=== PATIENT | male | born 1965 | race Caucasian/White ===

== ENCOUNTER → 2016-12-01 | Outpatient (CLI) | payer BC ==
[~2016-12-01] MED LIST: ASCA500 PO; GARLTAB3; LISI40TA PO
[2016-12-01 12:35] LABS: BASO % 0.7 %; BASO ABS # 0.05 K/uL (0-0.2); COMPLETE YES; EOS % 7.5 %; HEMATOCRIT 41.7 % (42-52); IG% 0.3 %; LYMPH ABS # 3.08 K/uL (1.2-3.4); MEAN CELL VOLUME 93.5 fL (80-100); MEAN CORPUSCULAR HEMOGLOBIN 31.2 pg (25-34); MEAN CORPUSCULAR HGB CONC 33.3 g/dl (32-36); MEAN PLATELET VOLUME 9.3 fL (7.4-10.4); MONO % 6.8 %; NEUT % 41.7 %; PLATELET COUNT 293 K/uL (130-400); RED BLOOD COUNT 4.46 M/uL (4.7-6.1); WHITE BLOOD COUNT 7.17 K/uL (4.8-10.8)
[2016-12-01 13:07] LABS: ESTIMATED AVERAGE GLUCOSE 105 mg/dl; HA1C FLAG Normal (Normal)
[2016-12-01 13:44] LABS: ALT/SGPT 32 U/L (12-78); AST/SGOT 20 U/L (15-37); BLOOD UREA NITROGEN 17 mg/dl (7-18); BUN/CREATININE RATIO 13.8 (10-20); CALCIUM 8.6 mg/dl (8.5-10.1); CARBON DIOXIDE 23 mmol/L (21-32); CHLORIDE 106 mmol/L (98-107); GLUCOSE 94 mg/dl (70-99); POTASSIUM 4.2 mmol/L (3.5-5.1); SODIUM 139 mmol/L (136-145)
[2016-12-01 13:55] LABS: ALB/GLOB RATIO 1.3 (0.9-2); ALKALINE PHOSPHATASE 63 U/L (45-117); CHOLESTEROL 227 mg/dl (0-200); CHOLESTEROL/HDL RATIO 2.9; HDL CHOLESTEROL 77 mg/dl; LDL CHOLESTEROL CALCULATED 137 mg/dl; THYROID STIMULATING HORMONE 0.974 uIu/ml (0.300-4.500); TRIGLYCERIDES 63 mg/dl (0-150); VERY LOW DENSITY LIPOPROT CALC 13 mg/dl
== END | disposition home or self-care (01) ==
LOC: C.LABBFT 08:42
PROVIDERS: ATTEND Internal Medicine
DX: Z12.5 Encounter for screening for malignant neoplasm of prostate (principal); E78.5 Hyperlipidemia, unspecified; I10 Essential (primary) hypertension; R73.01 Impaired fasting glucose

== ENCOUNTER → 2017-01-05 | Outpatient (CLI) | payer BC ==
[2017-01-05 12:18] LABS: BASO % 0.9 %; BASO ABS # 0.06 K/uL (0-0.2); COMPLETE YES; EOS % 5.1 %; HEMATOCRIT 39.6 % (42-52); IG% 0.1 %; LYMPH % 34.2 %; LYMPH ABS # 2.34 K/uL (1.2-3.4); MEAN CELL VOLUME 93.2 fL (80-100); MEAN CORPUSCULAR HEMOGLOBIN 32.2 pg (25-34); MEAN CORPUSCULAR HGB CONC 34.6 g/dl (32-36); MEAN PLATELET VOLUME 9.3 fL (7.4-10.4); NEUT % 51.7 %; PLATELET COUNT 286 K/uL (130-400); RED BLOOD COUNT 4.25 M/uL (4.7-6.1); WHITE BLOOD COUNT 6.85 K/uL (4.8-10.8)
[2017-01-05 12:46] LABS: FERRITIN 403.9 ng/ml (8.0-388.0)
== END | disposition home or self-care (01) ==
LOC: C.LABBFT 09:06
PROVIDERS: ATTEND Internal Medicine
DX: D64.9 Anemia, unspecified (principal)

== ENCOUNTER → 2017-01-31 | Outpatient (CLI) | payer BC | END | disposition home or self-care (01) | LOC: C.LABSPEC 17:24 | PROVIDERS: ATTEND Internal Medicine | DX: D64.9 Anemia, unspecified (principal) ==

== ENCOUNTER → 2018-02-08 | Outpatient (CLI) | payer BC ==
[2018-02-08 17:34] LABS: BASO % 0.6 %; BASO ABS # 0.05 K/uL (0-0.2); EOS % 3.2 %; EOS ABS # 0.25 K/uL (0-0.5); HEMATOCRIT 43.2 % (42-52); HEMOGLOBIN 14.8 g/dL (14.0-18.0); IG# 0.01 K/uL (0.00-0.02); LYMPH % 37.8 %; LYMPH ABS # 2.97 K/uL (1.2-3.4); MEAN CELL VOLUME 93.9 fL (80-100); MEAN CORPUSCULAR HEMOGLOBIN 32.2 pg (25-34); MEAN CORPUSCULAR HGB CONC 34.3 g/dl (32-36); MEAN PLATELET VOLUME 9.3 fL (7.4-10.4); MONO % 6.1 %; MONO ABS # 0.48 K/uL (0.11-0.59); NEUT % 52.2 %; PLATELET COUNT 307 K/uL (130-400); RED CELL DISTRIBUTION WIDTH SD 45.1 fL (36.4-46.3); WHITE BLOOD COUNT 7.86 K/uL (4.8-10.8)
[2018-02-08 18:08] LABS: ALBUMIN 4.2 gm/dl (3.4-5.0); ALKALINE PHOSPHATASE 80 U/L (45-117); ALT/SGPT 37 U/L (12-78); AST/SGOT 23 U/L (15-37); BLOOD UREA NITROGEN 13 mg/dl (7-18); CALCIUM 8.9 mg/dl (8.5-10.1); CARBON DIOXIDE 24 mmol/L (21-32); CHOLESTEROL 249 mg/dl (0-200); CREATININE 1.01 mg/dl (0.60-1.40); GLUCOSE 81 mg/dl (70-99); LDL CHOLESTEROL CALCULATED 133 mg/dl; POTASSIUM 3.6 mmol/L (3.5-5.1); SODIUM 139 mmol/L (136-145); TOTAL PROTEIN 8.1 gm/dl (6.4-8.2)
[2018-02-09 05:58] LABS: HEMOGLOBIN A1C 5.3 % (4.5-5.6)
== END | disposition home or self-care (01) ==
LOC: C.LAB1850 16:25
PROVIDERS: ATTEND Internal Medicine
DX: D64.9 Anemia, unspecified (principal); E78.5 Hyperlipidemia, unspecified; R73.01 Impaired fasting glucose; Z12.5 Encounter for screening for malignant neoplasm of prostate

== ENCOUNTER 2022-07-29 23:14 | Inpatient (IN) ==
--- NOTE | 2022-07-30 00:01 | Emergency Department Note ---
Impression & Plan Alcohol intoxication, Mood disorder The case was signed out to Dr. Ramon at change of shift awaiting further evaluation by the ED psychiatric case advocate ED Provider Note NAME: FERCHO ARRIAZA AGE: 57 SEX: M ARRIVES VIA: Police Cruiser INFORMANT: Patient ED PROVIDER(S): Chiquis Sweeney DO CHIEF COMPLAINT: Alcohol intoxication; questionable suicidal statements PLAN: Disposition: The case was signed out to Dr. Ramon at change of shift Condition: Stable MEDICAL DECISION MAKING: This is a 57-year-old male patient who was brought to the emergency department on 302 after making some questionable suicidal statements. The patient was significantly intoxicated. We were awaiting sobriety patient sobered up over most of the night and was medically cleared this morning. The ED psychiatric case advocate was meeting with him and the case was signed out to Dr. Ramon for dispositioning. Triage Nursing notes reviewed and agree with them. Additional history obtained from the patient's and daughter with whom were meeting with the ED psychiatric case advocate by phone Vital Signs: reviewed and remarkable for tachycardia and mild hypertension Differential diagnosis: Mood disorder, thought disorder, alcohol intoxication Diagnostics interpreted by me: Laboratory studies: See below HPI: 57/M arrives for evaluation of 302 warrant. Patient was drinking alcohol tonight when he became frustrated with his grandchildren and left the home to go on a walk. Upon returning to the home, his daughter petitioned a 302 stating that he had made suicidal statements. State police brought him here for evaluation. The patient denies making the statements PAST MEDICAL HISTORY:Hypertension; depression PAST SURGICAL HISTORY:See Below FAMILY HISTORY:See Below SOCIAL HISTORY:Patient was laid off of his job 2 and half years ago. The patient uses chewing tobacco HOME MEDICATIONS:See list ALLERGIES:Penicillin VITALS:See Below PHYSICAL EXAMINATION: HEENT: Head - normocephalic and atraumatic. Pupils are equal, round, and reactive to light. Extraocular eye muscles are intact, and sclera are anicteric. Nose - moist nasal mucosa without discharge. Mouth - moist buccal mucosa. Oropharynx is nonerythematous and there is no tonsillar exudate or edema noted. Neck: Supple; no cervical lymphadenopathy Heart: Regular rate and rhythm. There is a normal S1 and S2 with no murmurs, clicks, or gallops appreciated. Lungs: Clear to auscultation bilaterally with no wheezes, rales, or rhonchi. Abdomen: Soft, completely nontender, nondistended, with good bowel sounds. Th ere are no palpable pulsatile masses or hepatosplenomegaly. There is no guarding, rigidity, or rebound noted. Extremities: No evidence of cyanosis, clubbing, or edema. There are easily palpable peripheral pulses. Skin: warm and dry with good turgor and no rashes. Psych: The patient admits that he is depressed but denies any suicidal or homicidal thoughts ED COURSE: Times/Reassessments: 234 patient was evaluated in room A-5 Laboratory studies were drawn. Chiquis Sweeney DO Past Med/Surg History Medical History Hypertension Right bundle branch block Surgical History S/P tonsillectomy Family History Daughter Breast cancer Denies family history of Prostate cancer Lung cancer Colorectal cancer Social History (Updated 02/05/22 @ 10:30 by SKIP Davidson) Smoking Status: Unknown if ever smoked Tobacco Type: Smokeless Tobacco (Dip or Chew) Second Hand Exposure: No; Hx Alcohol Use: Yes Alcohol type: beer Alcohol Intake Frequency Comment: 6 be ers per day Hx Substance Use: No Preferred Language: Icelandic Hearing Ability: Normal Reinstatement Clerk Required: No marital status: Current Living Situation: Spouse current occupational status: retired Feels Safe at Home: Yes Childhood Exposure to Second-Hand Smoke: No caffeine: Yes Dental Care, Regularly: No Physical Activity Frequency: Does not Exercise Seatbelt Use: always Gender Identity: Male Allergies Allergies Allergy/AdvReac Type Severity Reaction Status Date / Time Penicillins Allergy Unknown RASH Verified 02/05/22 10:18 Home Meds Previous Rx's Medication Instructions Recorded amlodipine 10 mg tablet 10 mg PO DAILY #90 tabs 02/05/22 lisinopril 40 mg tablet 40 mg PO DAILY #90 tabs 02/05/22 Results & Data (ED) Vital Signs Vital Signs - 24 hr 07/29/22 23:24 07/30/22 02:42 07/30/22 05:00 Temperature 36.6 C 36.8 C Temperature Source Oral Oral Pulse Rate 95 H Pulse Rate [Right Finger] 90 88 Pulse Rhythm [Right Finger] Regular Pulse Strength [Right Finger] Normal Respiratory Rate 18 16 18 Respiratory Effort / Characteristics Non-Labored Non-Labored Spontaneous Non-Labored Spontaneous Respiratory Depth Normal Normal Normal Respiratory Pattern Regular Blood Pressure 140/98 Blood Pressure [Right Radial Artery] 113/69 118/70 Blood Pressure Mean 112 Blood Pressure Mean [Right Radial Artery] 83 86 Blood Pressure Position [Right Radial Artery] Lying Pulse Oximetry 96 98 95 Oxygen Delivery Method Room Air Room Air Room Air Sepsis Recent Fever Within 48 Hours No Sepsis New/Unexplained Change in Mental Status N/A Sepsis Action Taken by Nursing No Action Required 07/30/22 07:39 07/30/22 12:51 Temperature 37 C Temperature Source Oral Pulse Rate Pulse Rate [Right Finger] 89 104 H Pulse Rhythm [Right Finger] Pulse Strength [Right Finger] Respiratory Rate 20 Respiratory Effort / Characteristics Non-Labored Spontaneous Respiratory Depth Normal Respiratory Pattern Regular Blood Pressure Blood Pressure [Right Radial Artery] 152/83 H 144/73 H Blood Pressure Mean Blood Pressure Mean [Right Radial Artery] 106 96 Blood Pressure Position [Right Radial Artery] Lying Pulse Oximetry 93 97 Oxygen Delivery Method Room Air Room Air Sepsis Recent Fever Within 48 Hours Sepsis New/Unexplained Change in Mental Status Sepsis Action Taken by Nursing Laboratory Data 07/30/22 00:01 07/30/22 00:01 Lab Results 07/30/22 07/30/22 07/30/22 Range/Units 00:01 00:01 00:01 WBC 8.07 (4.8-10.8) K/ul RBC 3.85 L (4.70-6.10) M/uL Hgb 13.3 L (14.0-18.0) g/dl Hct 37.4 L (42.0-52.0) % MCV 97.1 (80.0-100.0) fL MCH 34.5 H (25.0-34.0) pg MCHC 35.6 (32.0-36.0) g/dL RDW Std Deviation 42.5 (36.4-46.3) fL RDW Coeff of Epi 11.9 (11.5-14.5) % Plt Count 322 (130-400) K/uL MPV 8.3 L (9.4-12.4) fL Immature Gran % (Auto) 0.4 % Neut % (Auto) 62.6 % Lymph % (Auto) 26.6 % Preble % (Auto) 6.8 % Eos % (Auto) 2.4 % Baso % (Auto) 1.2 % Neut # (Auto) 5.05 (1.40-6.50) K/uL Lymph # (Auto) 2.15 (1.2-3.4) K/uL Preble # (Auto) 0.55 (0.11-0.59) K/uL Eos # (Auto) 0.19 (0-0.50) K/uL Baso # (Auto) 0.10 (0-0.2) K/uL Immature Gran # (Auto) 0.03 (0.01-0.20) K/uL Sodium 130 L (136-145) mmol/L Potassium 4.3 (3.5-5.1) mmol/L Chloride 96 L (98-107) mmol/L Carbon Dioxide 18 L (21-32) mmol/L Anion Gap 16 H (3-11) BUN 20 (6-23) mg/dl Creatinine 1.06 (0.6-1.4) mg/dl Est Cr Clr Drug Dosing 66.1 ml/min Est GFR ( Amer) 89.2 ml/min Est GFR (Non-Af Amer) 77.0 ml/min BUN/Creatinine Ratio 18.9 (10-20) Glucose 103 H (70-99(Fasting)) mg/dl Calcium 9.1 (8.5-10.1) mg/dl Total Bilirubin 1.0 (0.2-1.0) mg/dl AST 59 H (13-39) U/L ALT 46 (7-52) U/L Alkaline Phosphatase 81 (34-104) U/L Total Protein 8.7 H (6.0-8.3) gm/dl Albumin 4.9 (3.4-5.0) gm/dl Globulin 3.8 (2.5-4.0) gm/dl Albumin/Globulin Ratio 1.3 (0.9-2) TSH 0.963 (0.300-4.500) uIu/ml Urine Color Urine Appearance (Clear) Urine pH (4.5-7.5) Ur Specific Echo (1.000-1.030) Urine Protein (Negative) Urine Glucose (UA) (Negative) Urine Ketones (Negative) Urine Blood (Negative) Urine Nitrite (Negative) Urine Bilirubin (Negative) Urine Urobilinogen (Negative) Ur Leukocyte Esterase (Negative) Salicylates (3.0-30) mg/dl Urine Opiates Screen (Neg) Ur Methadone, Qual (Neg) Acetaminophen (10-30) ug/ml Urine Barbiturates (Neg) Ur Phencyclidine (PCP) (Neg) U Amphetamin/Meth Scrn (Neg) MDMA (Ecstasy) Screen (Neg) U Benzodiazepines Scrn (Neg) Ur Cocaine Metabolite (Neg) U Marijuana (THC) Screen (Neg) Ethyl Alcohol mg/dL (<10.0) mg/dl SARS-CoV-2, RNA, NAAT (NEGATIVE) 07/30/22 07/30/22 07/30/22 Range/Units 00:01 00:01 02:46 WBC (4.8-10.8) K/ul RBC (4.70-6.10) M/uL Hgb (14.0-18.0) g/dl Hct (42.0-52.0) % MCV (80.0-100.0) fL MCH (25.0-34.0) pg MCHC (32.0-36.0) g/dL RDW Std Deviation (36.4-46.3) fL RDW Coeff of Epi (11.5-14.5) % Plt Count (130-400) K/uL MPV (9.4-12.4) fL Immature Gran % (Auto) % Neut % (Auto) % Lymph % (Auto) % Preble % (Auto) % Eos % (Auto) % Baso % (Auto) % Neut # (Auto) (1.40-6.50) K/uL Lymph # (Auto) (1.2-3.4) K/uL Preble # (Auto) (0.11-0.59) K/uL Eos # (Auto) (0-0.50) K/uL Baso # (Auto) (0-0.2) K/uL Immature Gran # (Auto) (0.01-0.20) K/uL Sodium (136-145) mmol/L Potassium (3.5-5.1) mmol/L Chloride (98-107) mmol/L Carbon Dioxide (21-32) mmol/L Anion Gap (3-11) BUN (6-23) mg/dl Creatinine (0.6-1.4) mg/dl Est Cr Clr Drug Dosing ml/min Est GFR ( Amer) ml/min Est GFR (Non-Af Amer) ml/min BUN/Creatinine Ratio (10-20) Glucose (70-99(Fasting)) mg/dl Calcium (8.5-10.1) mg/dl Total Bilirubin (0.2-1.0) mg/dl AST (13-39) U/L ALT (7-52) U/L Alkaline Phosphatase (34-104) U/L Total Protein (6.0-8.3) gm/dl Albumin (3.4-5.0) gm/dl Globulin (2.5-4.0) gm/dl Albumin/Globulin Ratio (0.9-2) TSH (0.300-4.500) uIu/ml Urine Color Yellow Urine Appearance Clear (Clear) Urine pH 5.5 (4.5-7.5) Ur Specific Echo 1.005 (1.000-1.030) Urine Protein Negative (Negative) Urine Glucose (UA) Negative (Negative) Urine Ketones Negative (Negative) Urine Blood Negative (Negative) Urine Nitrite Negative (Negative) Urine Bilirubin Negative (Negative) Urine Urobilinogen Negative (Negative) Ur Leukocyte Esterase Negative (Negative) Salicylates < 3.0 L (3.0-30) mg/dl Urine Opiates Screen (Neg) Ur Methadone, Qual (Neg) Acetaminophen < 3 L (10-30) ug/ml Urine Barbiturates (Neg) Ur Phencyclidine (PCP) (Neg) U Amphetamin/Meth Scrn (Neg) MDMA (Ecstasy) Screen (Neg) U Benzodiazepines Scrn (Neg) Ur Cocaine Metabolite (Neg) U Marijuana (THC) Screen (Neg) Ethyl Alcohol mg/dL 303.9 H (<10.0) mg/dl SARS-CoV-2, RNA, NAAT (NEGATIVE) 07/30/22 07/30/22 Range/Units 02:46 02:46 WBC (4.8-10.8) K/ul RBC (4.70-6.10) M/uL Hgb (14.0-18.0) g/dl Hct (42.0-52.0) % MCV (80.0-100.0) fL MCH (25.0-34.0) pg MCHC (32.0-36.0) g/dL RDW Std Deviation (36.4-46.3) fL RDW Coeff of Epi (11.5-14.5) % Plt Count (130-400) K/uL MPV (9.4-12.4) fL Immature Gran % (Auto) % Neut % (Auto) % Lymph % (Auto) % Preble % (Auto) % Eos % (Auto) % Baso % (Auto) % Neut # (Auto) (1.40-6.50) K/uL Lymph # (Auto) (1.2-3.4) K/uL Preble # (Auto) (0.11-0.59) K/uL Eos # (Auto) (0-0.50) K/uL Baso # (Auto) (0-0.2) K/uL Immature Gran # (Auto) (0.01-0.20) K/uL Sodium (136-145) mmol/L Potassium (3.5-5.1) mmol/L Chloride (98-107) mmol/L Carbon Dioxide (21-32) mmol/L Anion Gap (3-11) BUN (6-23) mg/dl Creatinine (0.6-1.4) mg/dl Est Cr Clr Drug Dosing ml/min Est GFR ( Amer) ml/min Est GFR (Non-Af Amer) ml/min BUN/Creatinine Ratio (10-20) Glucose (70-99(Fasting)) mg/dl Calcium (8.5-10.1) mg/dl Total Bilirubin (0.2-1.0) mg/dl AST (13-39) U/L ALT (7-52) U/L Alkaline Phosphatase (34-104) U/L Total Protein (6.0-8.3) gm/dl Albumin (3.4-5.0) gm/dl Globulin (2.5-4.0) gm/dl Albumin/Globulin Ratio (0.9-2) TSH (0.300-4.500) uIu/ml Urine Color Urine Appearance (Clear) Urine pH (4.5-7.5) Ur Specific Echo (1.000-1.030) Urine Protein (Negative) Urine Glucose (UA) (Negative) Urine Ketones (Negative) Urine Blood (Negative) Urine Nitrite (Negative) Urine Bilirubin (Negative) Urine Urobilinogen (Negative) Ur Leukocyte Esterase (Negative) Salicylates (3.0-30) mg/dl Urine Opiates Screen Neg (Neg) Ur Methadone, Qual Neg (Neg) Acetaminophen (10-30) ug/ml Urine Barbiturates Neg (Neg) Ur Phencyclidine (PCP) Neg (Neg) U Amphetamin/Meth Scrn Neg (Neg) MDMA (Ecstasy) Screen Neg (Neg) U Benzodiazepines Scrn Neg (Neg) Ur Cocaine Metabolite Neg (Neg) U Marijuana (THC) Screen Neg (Neg) Ethyl Alcohol mg/dL (<10.0) mg/dl SARS-CoV-2, RNA, NAAT NEGATIVE (NEGATIVE) Administered Medications Amlodipine Besylate (Amlodipine Besylate 5 Mg Tab) 10 mg PO DAILY ZENAIDA Stop: 08/29/22 14:29 Last Admin: 07/30/22 14:35 Dose: 10 mg Documented By: KTS Discontinued Medications Multivitamins 10 ml/ Thiamine HCl 100 mg/ Folic Acid 1 mg/Sodium Chloride 1,011.2 mls @ 1,011.2 mls/hr IV .Q1H ONE Stop: 07/30/22 07:23 Last Infusion: 07/30/22 08:00 Dose: 0 mls/hr Documented By: Admin: 07/30/22 06:52 Dose: 1,011.2 mls/hr Documented By: VIRGEN Discharge Plan Visit Data Chief Complaint: Mental Health Evaluation Stated Complaint: 302 ED Provider: Norman Ramon Discharge Problem: Alcohol intoxication, Mood disorder Forms Stand Alone Forms: My [facility], Suicide Prevention Resources Prescriptions Prescriptions: No Action amlodipine 10 mg tablet 10 mg PO DAILY Qty: 90 3RF lisinopril 40 mg tablet 40 mg PO DAILY Qty: 90 3RF Referrals Referrals: Franklin Hall III, MD [Physician] - : Alcohol intoxication Qualifiers: Complication of substance-induced condition: with unspecified complication Qualified Code(s): F10.929 - Alcohol use, unspecified with intoxication, unspecified
[2022-07-30 00:37] LABS: Basophils % (auto) 1.2 %; Eosinophils # (auto) 0.19 K/uL (0-0.50); Eosinophils % (auto) 2.4 %; Hematocrit (blood only) 37.4 % (42.0-52.0); Hemoglobin 13.3 g/dl (14.0-18.0); Immature Granulocytes # (auto) 0.03 K/uL (0.01-0.20); Immature Granulocytes % (auto) 0.4 %; Lymphocytes # (auto) 2.15 K/uL (1.2-3.4); Lymphocytes % (auto) 26.6 %; Mean Corpuscular Hemoglobin 34.5 pg (25.0-34.0); Mean Corpuscular Hgb Conc 35.6 g/dL (32.0-36.0); Mean Corpuscular Volume 97.1 fL (80.0-100.0); Mean Platelet Volume 8.3 fL (9.4-12.4); Monocytes # (auto) 0.55 K/uL (0.11-0.59); Monocytes % (auto) 6.8 %; Neutrophils # (auto) 5.05 K/uL (1.40-6.50); Neutrophils % (auto) 62.6 %; Platelet Count 322 K/uL (130-400); RDW Coefficient of Variation 11.9 % (11.5-14.5); RDW Standard Deviation 42.5 fL (36.4-46.3); Red Blood Count 3.85 M/uL (4.70-6.10); White Blood Count 8.07 K/ul (4.8-10.8)
[2022-07-30 01:23] LABS: Albumin Level 4.9 gm/dl (3.4-5.0); Calcium 9.1 mg/dl (8.5-10.1); Potassium 4.3 mmol/L (3.5-5.1)
[2022-07-30 01:29] LABS: Albumin Globulin Ratio 1.3 (0.9-2); BUN Creatinine Ratio 18.9 (10-20); Creatinine Clr Calc Pharmacy 66.1 ml/min; Est GFR (African American) 89.2 ml/min; Globulin 3.8 gm/dl (2.5-4.0); Total Protein 8.7 gm/dl (6.0-8.3)
[2022-07-30 01:49] LABS: Acetaminophen < 3 ug/ml (10-30); Salicylate < 3.0 mg/dl (3.0-30)
[2022-07-30 03:30] LABS: Appearance Urine Clear (Clear); Bilirubin Urine Negative (Negative); Blood Urine Negative (Negative); Color Urine Yellow; Glucose Urine UA Negative (Negative); Ketones Urine Negative (Negative); Leukocyte Esterase Urine Negative (Negative); Nitrite Urine Negative (Negative); Protein Urine Negative (Negative); Specific Gravity Urine 1.005 (1.000-1.030); Urobilinogen Urine Negative (Negative); pH Urine 5.5 (4.5-7.5)
[2022-07-30 03:58] LABS: Amphetamines+Metham, Urine Neg (Neg); Barbiturates, Urine Neg (Neg); Benzodiazepine, Urine Neg (Neg); Cocaine, Urine Neg (Neg); MDMA (Ecstacy), Urine Neg (Neg); Methadone, Urine Neg (Neg); Opiate, Urine Neg (Neg); Phencyclidine, Urine Neg (Neg)
[2022-07-30] MEDS ORDERED: MULTI-VITAMIN INFUSION 10 ML, THIAMINE HCL 100 MG, FOLIC ACID 1 MG in SODIUM CHLORIDE 0... IV ONE (06:24)
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
[2022-07-30] MEDS ORDERED: amLODIPine BESYLATE 5 MG TAB PO SCH (14:30)
--- NOTE | 2022-07-31 00:51 | Emergency Department Note ---
ED Visit Note 57-year-old male alcoholic signed out to be by Dr. Ramon. Bed search is underway. Patient is currently a 201 although family has a 302 on the chart. He made suicidal statements to the family. No issues during my portion of the patient's stay on my shift. Signed out to Dr. Rocha at gravity meter observer. . : Alcohol intoxication Qualifiers: Complication of substance-induced condition: with unspecified complication Qualified Code(s): F10.929 - Alcohol use, unspecified with intoxication, unspecified
--- NOTE | 2022-07-31 04:18 | Emergency Department Note ---
ED Visit Note ED psychiatric observation note Patient was signed over to me by Dr. Jenkins, patient is alcoholic with suicidal ideation is under a 201 and currently undergoing a bed search Disposition is still pending There were no issues during the emergency department overnight observation. Plan is to resume a bed search in the morning . : Alcohol intoxication Qualifiers: Complication of substance-induced condition: with unspecified complication Qualified Code(s): F10.929 - Alcohol use, unspecified with intoxication, unspecified
[2022-07-31] MEDS ORDERED: Ativan PO Alcohol Withdrawal--Active Protocol PO PRN (05:01)
[2022-07-31] MEDS ORDERED: GABAPENTIN 1200MG ALCOHOL WITHDRAWAL LOAD PO STA (05:01)
[2022-07-31] MEDS ORDERED: LORazepam 1 MG TAB PO PRN ×3 (05:06)
[2022-07-31] MEDS ORDERED: ACETAMINOPHEN 325 MG TAB PO PRN (05:19)
[2022-07-31] MEDS ORDERED: BISMUTH SUBSALICYLATE LIQD 236 ML PO PRN (05:19)
[2022-07-31] MEDS ORDERED: SODIUM CHLORIDE 0.65% NA SOLN 45 ML (OCEAN) PRN (05:19)
[2022-07-31] MEDS ORDERED: hydrOXYzine HCl 25 MG TAB PO PRN ×2 (05:19)
[2022-07-31] MEDS ORDERED: ALUMINUM/MAGNESIUM SUSP 30 ML UDC PO PRN (05:19)
[2022-07-31] MEDS ORDERED: MAGNESIUM HYDROXIDE SUSP 30 ML UDC PO PRN (05:19)
[2022-07-31] MEDS ORDERED: GABAPENTIN 600 MG TAB PO STA (05:31)
--- NOTE | 2022-07-31 05:59 | Emergency Department Note ---
ED Visit Note ED psychiatric observation note At 5:55 AM, the patient was excepted to 3 S. for psychiatric treatment Paperwork was signed by me Disposition is admit to 3 S. Admitting diagnosis is suicidal ideation . : Alcohol intoxication Qualifiers: Complication of substance-induced condition: with unspecified complication Qualified Code(s): F10.929 - Alcohol use, unspecified with intoxication, unspecified
--- NOTE | 2022-07-31 07:54 | History & Physical ---
Date of Service July 31, 2022 Impression / Recommendations Impression There are indications of possible mood disorder, but the most prominent problem is clearly alcohol use and risk of withdrawal. The patient is sufficiently alexithymic to throw some doubts on his minimization of depression, but I think it's likely that this will more amenable to elucidation when he's no longer withdrawing. Thus far medical management of withdrawal has been effective with symptoms limited to mild tremor. (1) Alcohol use disorder, moderate, dependence: (2) Alcohol withdrawal syndrome without complication: Plan Continue gapentin taper and lorazepam sliding scale based AWSS rating. Frequent reassessment to clarify need for antidepressant medication. Pt fairly clearly would benefit from increasing his repertoire of coping mechanisms (currently limited to alcohol and work). Discussed at some length the advisability of pursuing alcohol use disorder treatment following discharge. He is clearly fully voluntary and should be allowed to sign himself in, Inventory Assets Strengths: Intelligent, pleasant, cooperative, willing to accept help Needs: Alexithymic, limited ability to think psychologically Suicide Risk Level Suicide Risk Level: Low (q15 min observation checks) Risk Factors Assessment Male: Yes : Yes Do You Have Access To A Gun?: Yes Health Problems: No Substance Use Disorders: Yes Previous Attempt: No Family History of Suicide: No Hopelessness: No Protective Factors Assessment : Yes Employed: No (Retired. Laid off in Spring 2019) Stable Relationships: Yes Supportive Family: Yes Psychiatric History Identifying Data FERCHO ARRIAZA is a 57-year-old M who currently lives in a house with his of 38 years, has no previous psychiatric history, and was admitted on 07/31/22 05:19 on a 302 involuntary commitment for reported suicidality. Chief Complaint "I wasn't suicidal". History of Present Illness 57 y/o man brought to the ED on 302 petition by his who reported he was suicidal. He says he just needed to get out of the house because visiting grandkids were loud and rambunctious and he was becoming annoyed and feared he'd yell at them. Everyone seems to agree he'd been drinking and was walking along the road. He insists he only drinks 4 (18-oz) beers and 4 shots of liquor daily and was careful to avoid traffic, while his thinks he drinks more than that and was putting himself at risk from cars along the road. 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 He was made redundant at his previous job but felt incapable of retiring so get the job at the store, which he says he loved. The reasons he was let go from there are somewhat vague but may be related to alcohol. Although pt insists he has hobbies and interests, he focuses quite a lot on how rootless he feels without a job. He acknowledges he's drinking too much. He gets tremulous if he pushes his first drink past mid-afternoon (it's usually at midday) but he's had no other withdrawal symptoms (nor has he gone a day without drinking for years). He denies any previous psychiatric treatment. He endorses poor sleep and appetite but says interest is intact and denies anhedonia. He denies suicidal thoughts ever. He is pleasant and cooperative but presents as somewhat alexithymic and not prone to thinking psychologically. Past Psychiatric History Previous Psych History: denies Current Psychiatric Diagnosis: Denies Outpatient Services: denies Previous Psych Admissions: denies Do You Have Access To A Gun?: Yes History of Previous Suicide Attempt: No Allergies Allergy/AdvReac Type Severity Reaction Status Date / Time Penicillins Allergy Unknown RASH Verified 02/05/22 10:18 Home Medications Medication Instructions Recorded Confirmed Type amlodipine 10 mg tablet 10 mg PO DAILY #90 tabs 02/05/22 02/05/22 Rx lisinopril 40 mg tablet 40 mg PO DAILY #90 tabs 02/05/22 02/05/22 Rx Family History Family History of: None Alcohol History Hx of Alcohol Use Over the Past 12 Months: Yes (4 beers, 2-3 shots daily) Smoking Use tobacco type: smokeless tobacco Smoking Status: Unknown if ever smoked Substance History Hx of Prescription Med Misuse Over the Past 12 Months: No Hx of Over the Counter Med Misuse Over the Past 12 Months: No Hx of Inhalent Misuse Over the Past 12 Months: No Hx of Organic Substance Use Over the Past 12 Months: No Hx of Illegal Substances/Street Drug Use Over Past 12 Months: No Problems as a Result of Past Substance Use: None Identified Personal History Living Arrangements: Home Patient History Medical History Hypertension Right bundle branch block Surgical History S/P tonsillectomy Family History Daughter Breast cancer Denies family history of Prostate cancer Lung cancer Colorectal cancer Social History (Updated 02/05/22 @ 10:30 by SKIP Davidson) Smoking Status: Unknown if ever smoked Tobacco Type: Smokeless Tobacco (Dip or Chew) Second Hand Exposure: No; Hx Alcohol Use: Yes Alcohol type: beer Alcohol Intake Frequency Comment: 6 beers per day Hx Substance Use: No Preferred Language: French Communication Ability: Effective Hearing Ability: Normal [employer] Required: No Beliefs That Will Affect Care: None marital status: Current Living Situation: Spouse current occupational status: retired Feels Safe at Home: Yes Childhood Exposure to Second-Hand Smoke: No caffeine: Yes Dental Care, Regularly: No Physical Activity Frequency: Does not Exercise Seatbelt Use: always Gender Identity: Male Assistive Devices: Glasses Physical Exam Psychiatric: Orientation: alert and oriented x 3 Apperance: appropriately dressed and appropriately groomed Eye Contact: good eye contact Motor Behavior: + tremor Affect: + constricted affect Mood: no depressed mood, no anxious mood and no irritable mood Thought Process: goal directed thought process, linear/logical thought process and clear/coherent thought process Thought Content: reality based without delusions; no preoccupation, no obsessions, not paranoid, no compulsions, no delusions and no ideas of reference Suicidal Thoughts: denies suicidal thoughts Homicidal Thoughts: denies homicidal thoughts Hallucinations: no auditory hallucinations, no visual hallucinations and no tactile hallucinations Cognition: recent memory grossly intact, remote memory grossly intact and attention grossly intact Estimated Intelligence: average estimated intelligence Insight: + fair insight Judgment: + fair judgement Vital Signs (Past 24 Hours): Last Vital Signs Temp 36.9 C 07/31/22 06:00 Pulse 88 07/31/22 06:00 Resp 18 07/31/22 06:00 BP 161/88 H 07/31/22 06:00 Pulse Ox 100 07/31/22 06:00 O2 Del Method 07/31/22 06:00 Exam Statement: A physical exam was performed in the ED for the purposes of medical clearance. I accept that physical as correct and adequate for the purposes of the inpatient physical exam. Results & Data ([facility]) Current Inpatient Medications Current Inpatient Medications: Current Inpatient Medications Acetaminophen (Acetaminophen 325 Mg Tab) 650 mg PO Q4H PRN PRN Reason: Headache or Minor Fever Stop: 08/30/22 05:18 Al Hydrox/Mg Hydrox/Simethicone (Aluminum/Magnesium Susp 30 Ml Udc) 30 ml PO Q4H PRN PRN Reason: GI Upset Stop: 08/30/22 05:18 Amlodipine Besylate (Amlodipine Besylate 5 Mg Tab) 10 mg PO QAM [facility] Stop: 08/30/22 08:59 Bismuth Subsalicylate (Bismuth Subsalicylate Liqd 236 Ml) 15 ml PO PRN PRN PRN Reason: Loose Stool Stop: 08/30/22 05:18 Folic Acid (Folic Acid 1 Mg Tab) 1 mg PO QAM [facility] Stop: 08/30/22 08:59 Gabapentin (Gabapentin 600 Mg Tab) 600 mg PO Q6H [facility] Stop: 07/31/22 17:16 Gabapentin (Gabapentin 600 Mg Tab) 600 mg PO Q8H [facility] Stop: 08/01/22 17:16 Gabapentin (Gabapentin 600 Mg Tab) 600 mg PO Q12H [facility] Stop: 08/02/22 17:16 Gabapentin (Gabapentin 600 Mg Tab) 600 mg PO Q24H [facility] Stop: 08/03/22 17:16 Hydroxyzine HCl (Hydroxyzine Hcl 25 Mg Tab) 50 mg PO HSZ PRN PRN Reason: Insomnia Stop: 08/30/22 05:18 Hydroxyzine HCl (Hydroxyzine Hcl 25 Mg Tab) 25 mg PO Q4H PRN PRN Reason: Anxiety Stop: 08/30/22 05:18 Lisinopril (Lisinopril 40 Mg Tab) 40 mg PO QAM [facility] Stop: 08/30/22 08:59 Lorazepam (Lorazepam 1 Mg Tab) 1 mg PO UD PRN; Protocol PRN Reason: EtOH Withdrawal AWSS Score 6,7 Stop: 08/30/22 05:05 Lorazepam (Lorazepam 1 Mg Tab) 3 mg PO ONCE PRN; Protocol PRN Reason: EtOH Withdrawal AWSS Score 10 & above Lorazepam (Lorazepam 1 Mg Tab) 2 mg PO UD PRN; Protocol PRN Reason: EtOH Withdrawal AWSS Score 8,9 Stop: 08/30/22 05:05 Magnesium Hydroxide (Magnesium Hydroxide Susp 30 Ml Udc) 30 ml PO DAILY PRN PRN Reason: Constipation Stop: 08/30/22 05:18 Sodium Chloride (Sodium Chloride 0.65% Na Soln 45 Ml ([place])) 1 - 2 sprays NA PRN PRN PRN Reason: Nasal Dryness/Congestion Stop: 08/30/22 05:18 Thiamine HCl (Thiamine Hcl 100 Mg Tab) 100 mg PO QAM [facility] Stop: 08/30/22 08:59
[2022-07-31] MEDS ORDERED: lisinopril 40 MG TAB PO SCH (09:00)
[2022-07-31] MEDS: amLODIPine BESYLATE 5 MG TAB PO SCH (09:37)
[2022-07-31] MEDS: FOLIC ACID 1 MG TAB PO SCH (09:37)
[2022-07-31] MEDS: lisinopril 40 MG TAB PO SCH (09:37)
[2022-07-31] MEDS: THIAMINE HCL 100 MG TAB PO SCH (09:37)
[2022-07-31] MEDS: GABAPENTIN 600 MG TAB PO SCH ×2 (11:46→17:33)
[2022-08-01] MEDS: GABAPENTIN 600 MG TAB PO SCH ×3 (00:15→16:58)
[2022-08-01] MEDS: lisinopril 40 MG TAB PO SCH (08:49)
[2022-08-01] MEDS: amLODIPine BESYLATE 5 MG TAB PO SCH (08:49)
[2022-08-01] MEDS: THIAMINE HCL 100 MG TAB PO SCH (08:49)
[2022-08-01] MEDS: FOLIC ACID 1 MG TAB PO SCH (08:50)
[2022-08-01 10:27] LABS: Albumin Globulin Ratio 1.3 (0.9-2); Albumin Level 4.4 gm/dl (3.4-5.0); BUN Creatinine Ratio 21.8 (10-20); Bilirubin,Total 2.1 mg/dl (0.2-1.0); Calcium 9.7 mg/dl (8.5-10.1); Creatinine Clr Calc Pharmacy 63.7 ml/min; Est GFR (African American) 85.3 ml/min; Est GFR (Non-African American) 73.6 ml/min; Globulin 3.3 gm/dl (2.5-4.0); Potassium 4.1 mmol/L (3.5-5.1); Total Protein 7.7 gm/dl (6.0-8.3)
--- NOTE | 2022-08-01 12:49 | Psychiatric Progress Note ---
Date of Service August 01, 2022 Impression / Recommendations Impression 08/01/22: Pt reports feeling less tremulous, though he did have an episode of diaphoresis last night AWSS scores have supported that withdrawal symoptoms are being supressed well by gabapentin taper. Pt continues to express depressed mood, which he continues to believe would not be the case if only he were working. Reviewed several medication options in detail. Pt would like to proceed with trial of escitalopram. 07/31/22: There are indications of possible mood disorder, but the most prominent problem is clearly alcohol use and risk of withdrawal. The patient is sufficiently alexithymic to throw some doubts on his minimization of depression, but I think it's likely that this will more amenable to elucidation when he's no longer withdrawing. Thus far medical management of withdrawal has been effective with symptoms limited to mild tremor. (1) Alcohol use disorder, moderate, dependence: (2) Alcohol withdrawal syndrome without complication: Plan 08/01/22: Begin trial of escitalopram 20 mg daily. Continue gapentin taper and lorazepam sliding scale based AWSS rating. 07/31/22: Continue gapentin taper and lorazepam sliding scale based AWSS rating. Frequent reassessment to clarify need for antidepressant medication. Pt fairly clearly would benefit from increasing his repertoire of coping mechanisms (currently limited to alcohol and work). Discussed at some length the advisability of pursuing alcohol use disorder treatment following discharge. He is clearly fully voluntary and should be allowed to sign himself in, Inventory Assets Strengths: Intelligent, pleasant, cooperative, willing to accept help Needs: Alexithymic, limited ability to think psychologically Suicide Risk Level Suicide Risk Level: Low (q15 min observation checks) Risk Factors Assessment Male: Yes : Yes Do You Have Access To A Gun?: Yes Health Problems: No Substance Use Disorders: Yes Previous Attempt: No Family History of Suicide: No Hopelessness: No Protective Factors Assessment : Yes Employed: No (Retired. Laid off in Spring 2019) Stable Relationships: Yes Supportive Family: Yes Interval History Chief Complaint "Doing better". Review of Systems Sleep Information Total Hours of Sleep: 5.5 Meal Information Percent Meal Consumed - Breakfast: 100 Percent Meal Consumed - Lunch: 90 Percent Meal Consumed - Dinner: 90 Subjective Subjective Patient was seen & assessed and interval progress reviewed with treatment team nursing and social work Physical Exam Psychiatric Orientation: alert and oriented x 3 Apperance: appropriately dressed and appropriately groomed Eye Contact: good eye contact Motor Behavior: + tremor Affect: + constricted affect Mood: + depressed mood; no anxious mood and no irritable mood Thought Process: goal directed thought process, linear/logical thought process and clear/coherent thought process Thought Content: reality based without delusions; no preoccupation, no obsessions, not paranoid, no compulsions, no delusions and no ideas of reference Suicidal Thoughts: denies suicidal thoughts Homicidal Thoughts: denies homicidal thoughts Hallucinations: no auditory hallucinations, no visual hallucinations and no tactile hallucinations Cognition: recent memory grossly intact, remote memory grossly intact and attention grossly intact Estimated Intelligence: average estimated intelligence Insight: + fair insight Judgment: + fair judgement Vital Signs (Past 24 Hours) Last Vital Signs Temp 36.8 C 08/01/22 10:39 Pulse 94 H 08/01/22 10:39 Resp 18 08/01/22 10:39 BP 132/83 08/01/22 10:39 Pulse Ox 96 07/31/22 22:00 O2 Del Method 07/31/22 22:00 Results & Data ([facility]) Laboratory Results Laboratory Results - last 24 hr 08/01/22 06:22 Sodium 136 Potassium 4.1 Chloride 101 Carbon Dioxide 24 Anion Gap 11 BUN 24 H Creatinine 1.10 Est Cr Clr Drug Dosing 63.7 Est GFR ( Amer) 85.3 Est GFR (Non-Af Amer) 73.6 BUN/Creatinine Ratio 21.8 H Glucose 103 H Calcium 9.7 Total Bilirubin 2.1 H AST 44 H ALT 38 Alkaline Phosphatase 64 Total Protein 7.7 Albumin 4.4 Globulin 3.3 Albumin/Globulin Ratio 1.3 Current Inpatient Medications Current Inpatient Medications: Current Inpatient Medications Acetaminophen (Acetaminophen 325 Mg Tab) 650 mg PO Q4H PRN PRN Reason: Headache or Minor Fever Stop: 08/30/22 05:18 Al Hydrox/Mg Hydrox/Simethicone (Aluminum/Magnesium Susp 30 Ml Udc) 30 ml PO Q4H PRN PRN Reason: GI Upset Stop: 08/30/22 05:18 Amlodipine Besylate (Amlodipine Besylate 5 Mg Tab) 10 mg PO QAM [facility] Stop: 08/30/22 08:59 Last Admin: 08/01/22 08:49 Dose: 10 mg Bismuth Subsalicylate (Bismuth Subsalicylate Liqd 236 Ml) 15 ml PO PRN PRN PRN Reason: Loose Stool Stop: 08/30/22 05:18 Folic Acid (Folic Acid 1 Mg Tab) 1 mg PO QAM [facility] Stop: 08/30/22 08:59 Last Admin: 08/01/22 08:50 Dose: 1 mg Gabapentin (Gabapentin 600 Mg Tab) 600 mg PO Q8H [facility] Stop: 08/01/22 17:16 Last Admin: 08/01/22 08:49 Dose: 600 mg Gabapentin (Gabapentin 600 Mg Tab) 600 mg PO Q12H [facility] Stop: 08/02/22 17:16 Gabapentin (Gabapentin 600 Mg Tab) 600 mg PO Q24H [facility] Stop: 08/03/22 17:16 Hydroxyzine HCl (Hydroxyzine Hcl 25 Mg Tab) 50 mg PO HSZ PRN PRN Reason: Insomnia Stop: 08/30/22 05:18 Hydroxyzine HCl (Hydroxyzine Hcl 25 Mg Tab) 25 mg PO Q4H PRN PRN Reason: Anxiety Stop: 08/30/22 05:18 Lisinopril ([facility] 40 Mg Tab) [facility] Stop: 08/30/22 08:59 Last Admin: 08/01/22 08:49 Dose: 40 mg Lorazepam (Lorazepam 1 Mg Tab) 1 mg PO UD PRN; Protocol PRN Reason: EtOH Withdrawal AWSS Score 6,7 Stop: 08/30/22 05:05 Lorazepam (Lorazepam 1 Mg Tab) 3 mg PO ONCE PRN; Protocol PRN Reason: EtOH Withdrawal AWSS Score 10 & above Lorazepam (Lorazepam 1 Mg Tab) 2 mg PO UD PRN; Protocol PRN Reason: EtOH Withdrawal AWSS Score 8,9 Stop: 08/30/22 05:05 Magnesium Hydroxide (Magnesium Hydroxide Susp 30 Ml Udc) 30 ml PO DAILY PRN PRN Reason: Constipation Stop: 08/30/22 05:18 Sodium Chloride (Sodium Chloride 0.65% Na Soln 45 Ml ([place])) 1 - 2 sprays NA PRN PRN PRN Reason: Nasal Dryness/Congestion Stop: 08/30/22 05:18 Thiamine HCl (Thiamine Hcl 100 Mg Tab) [facility] Stop: 08/30/22 08:59 Last Admin: 08/01/22 08:49 Dose: 100 mg Post Discharge Appointments Primary Care Physician Name Of Family Doctor/PCP: Adrien Cabello
[2022-08-02] MEDS: GABAPENTIN 600 MG TAB PO SCH ×2 (06:04→17:30)
--- NOTE | 2022-08-02 08:03 | Psychiatric Progress Note ---
Date of Service August 02, 2022 Impression / Recommendations Impression 08/02/22: Pt notes that he is not tremulous this morning. He did still have another episode yesterday evening of diaphoresis and increased tremor resulting in administration of lorazepam per withdrawal scale. AWSS scores support good suppression of withdrawal symptoms with gabapentin taper, the final dose of which is currently scheduled at 1700 tomorrow. Received first dose of escitalopram 10 mg this morning. Reports tolerating it well thus far and doesn't attribute to it any adverse effects (though it's only been a brief interval since he got it). Had a family meeting yesterday, which is reported to have gone well. Staff note, though, that later during a phone call he became upset because his removed all the alcohol she could find from the house followed by his voicing some indignation at the notion that he'd be expected not to have even a single drink. Pt. strongly wishes to be discharged tomorrow. 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 He accepts a role for medication and psychotherapy in treatment, but minimizes their importance. Of some additional concern is his confident assertions that he needs to quit drinking can easily do so (once he gets a job) contrasted with his being upset that his cleared the house of alcohol. However, his planned gabapentin taper will be ending tomorrow and he will have had 2 doses of escitalopram to assess for tolerability. He's not voicing suicidality, hopelessness, guilt or excessive self-reproach and is evidencing (somewhat limited) insight, so a discharge tomorrow would likely be reasonable in the absence of new or worsened symptoms. 08/01/22: Pt reports feeling less tremulous, though he did have an episode of diaphoresis last night AWSS scores have supported that withdrawal symptoms are being suppressed well by gabapentin taper. Pt continues to express depressed mood, which he continues to believe would not be the case if only he were working. Reviewed several medication options in detail. Pt would like to proceed with trial of escitalopram. 07/31/22: There are indications of possible mood disorder, but the most prominent problem is clearly alcohol use and risk of withdrawal. The patient is sufficiently alexithymic to throw some doubts on his minimization of depression, but I think it's likely that this will more amenable to elucidation when he's no longer withdrawing. Thus far medical management of withdrawal has been effective with symptoms limited to mild tremor. (1) Alcohol use disorder, moderate, dependence: (2) Alcohol withdrawal syndrome without complication: (3) Major depressive disorder, recurrent episode, moderate: Plan 08/02/22: Continue escitalopram 20 mg daily. Continue gabapentin taper and lorazepam sliding scale based on AWSS rating. Anticipate discharge tomorrow. 08/01/22: Begin trial of escitalopram 20 mg daily. Continue gabapentin taper and lorazepam sliding scale based on AWSS rating. 07/31/22: Continue gabapentin taper and lorazepam sliding scale based on AWSS rating. Frequent reassessment to clarify need for antidepressant medication. Pt fairly clearly would benefit from increasing his repertoire of coping mechanisms (currently limited to alcohol and work). Discussed at some length the advisability of pursuing alcohol use disorder treatment following discharge. He is clearly fully voluntary and should be allowed to sign himself in, Inventory Assets Strengths: Intelligent, pleasant, cooperative, willing to accept help Needs: Alexithymic, limited ability to think psychologically Suicide Risk Level Suicide Risk Level: Low (q15 min observation checks) Risk Factors Assessment Male: Yes : Yes Do You Have Access To A Gun?: Yes Health Problems: No Substance Use Disorders: Yes Previous Attempt: No Family History of Suicide: No Hopelessness: No Protective Factors Assessment : Yes Employed: No (Retired. Laid off in Spring 2019) Stable Relationships: Yes Supportive Family: Yes Interval History Chief Complaint "I don't have a tremor today". Review of Systems Notes improved sleep, still endorses depressed mood Sleep Information Total Hours of Sleep: 6 Meal Information Percent Meal Consumed - Breakfast: 100 Percent Meal Consumed - Lunch: 100 Percent Meal Consumed - Dinner: 100 Subjective Subjective Patient was seen & assessed and interval progress reviewed with treatment team nursing and social work Physical Exam Psychiatric Orientation: alert and oriented x 3 Apperance: appropriately dressed and appropriately groomed Eye Contact: good eye contact Motor Behavior: + tremor Affect: + constricted affect Mood: + depressed mood; no anxious mood and no irritable mood Thought Process: goal directed thought process, linear/logical thought process and clear/coherent thought process Thought Content: reality based without delusions; no preoccupation, no obsessions, not paranoid, no compulsions, no delusions and no ideas of reference Suicidal Thoughts: denies suicidal thoughts Homicidal Thoughts: denies homicidal thoughts Hallucinations: no auditory hallucinations, no visual hallucinations and no tactile hallucinations Cognition: recent memory grossly intact, remote memory grossly intact and attention grossly intact Estimated Intelligence: average estimated intelligence Insight: + fair insight Judgment: + fair judgement Vital Signs (Past 24 Hours) Last Vital Signs Temp 36.7 C 08/02/22 06:21 Pulse 101 H 08/02/22 06:22 Resp 18 08/02/22 06:21 BP 130/80 08/02/22 06:22 Pulse Ox 96 08/01/22 22:05 O2 Del Method 08/01/22 22:05 Results & Data ([facility]) Laboratory Results Laboratory Results - last 24 hr 08/01/22 06:22 Sodium 136 Potassium 4.1 Chloride 101 Carbon Dioxide 24 Anion Gap 11 BUN 24 H Creatinine 1.10 Est Cr Clr Drug Dosing 63.7 Est GFR ( Amer) 85.3 Est GFR (Non-Af Amer) 73.6 BUN/Creatinine Ratio 21.8 H Glucose 103 H Calcium 9.7 Total Bilirubin 2.1 H AST 44 H ALT 38 Alkaline Phosphatase 64 Total Protein 7.7 Albumin 4.4 Globulin 3.3 Albumin/Globulin Ratio 1.3 Diagnostic Findings 12-lead EKG this date read as showing incomplete RBBB with no significant change compared to previous study 30 June 2022. QTc was 432 ms (on escitalopram) Current Inpatient Medications Current Inpatient Medications: Current Inpatient Medications Acetaminophen (Acetaminophen 325 Mg Tab) 650 mg PO Q4H PRN PRN Reason: Headache or Minor Fever Stop: 08/30/22 05:18 Al Hydrox/Mg Hydrox/Simethicone (Aluminum/Magnesium Susp 30 Ml Udc) 30 ml PO Q4H PRN PRN Reason: GI Upset Stop: 08/30/22 05:18 Amlodipine Besylate (Amlodipine Besylate 5 Mg Tab) 10 mg PO QAM [facility] Stop: 08/30/22 08:59 Last Admin: 08/01/22 08:49 Dose: 10 mg Bismuth Subsalicylate (Bismuth Subsalicylate Liqd 236 Ml) 15 ml PO PRN PRN PRN Reason: Loose Stool Stop: 08/30/22 05:18 Escitalopram Oxalate (Escitalopram Oxalate 10 Mg Tab) 10 mg PO QAM [facility] Stop: 09/01/22 08:59 Folic Acid (Folic Acid 1 Mg Tab) 1 mg PO QAM [facility] Stop: 08/30/22 08:59 Last Admin: 08/01/22 08:50 Dose: 1 mg Gabapentin (Gabapentin 600 Mg Tab) 600 mg PO Q12H [facility] Stop: 08/02/22 17:16 Last Admin: 08/02/22 06:04 Dose: 600 mg Gabapentin (Gabapentin 600 Mg Tab) 600 mg PO Q24H [facility] Stop: 08/03/22 17:16 Hydroxyzine HCl (Hydroxyzine Hcl 25 Mg Tab) 50 mg PO HSZ PRN PRN Reason: Insomnia Stop: 08/30/22 05:18 Hydroxyzine HCl (Hydroxyzine Hcl 25 Mg Tab) 25 mg PO Q4H PRN PRN Reason: Anxiety Stop: 08/30/22 05:18 Lisinopril (Lisinopril 40 Mg Tab) 40 mg PO [facility] Stop: 08/30/22 08:59 Last Admin: 08/01/22 08:49 Dose: 40 mg Lorazepam (Lorazepam 1 Mg Tab) 1 mg PO UD PRN; Protocol PRN Reason: EtOH Withdrawal AWSS Score 6,7 Stop: 08/30/22 05:05 Last Admin: 08/01/22 18:06 Dose: 1 mg Lorazepam (Lorazepam 1 Mg Tab) 3 mg PO ONCE PRN; Protocol PRN Reason: EtOH Withdrawal AWSS Score 10 & above Lorazepam (Lorazepam 1 Mg Tab) 2 mg PO UD PRN; Protocol PRN Reason: EtOH Withdrawal AWSS Score 8,9 Stop: 08/30/22 05:05 Magnesium Hydroxide (Magnesium Hydroxide Susp 30 Ml Udc) 30 ml PO DAILY PRN PRN Reason: Constipation Stop: 08/30/22 05:18 Sodium Chloride (Sodium Chloride 0.65% Na Soln 45 Ml ([place])) 1 - 2 sprays NA PRN PRN PRN Reason: Nasal Dryness/Congestion Stop: 08/30/22 05:18 Thiamine HCl ([facility] Hcl 100 Mg Tab) [facility] [place] Stop: 08/30/22 08:59 Last Admin: 08/01/22 08:49 Dose: 100 mg Post Discharge Appointments Primary Care Physician Name Of Family Doctor/PCP: Adrien Cabello
[2022-08-02] MEDS: FOLIC ACID 1 MG TAB PO SCH (08:38)
[2022-08-02] MEDS: amLODIPine BESYLATE 5 MG TAB PO SCH (08:38)
[2022-08-02] MEDS: ESCITALOPRAM OXALATE 10 MG TAB PO SCH (08:38)
[2022-08-02] MEDS: THIAMINE HCL 100 MG TAB PO SCH (08:39)
[2022-08-02] MEDS: lisinopril 40 MG TAB PO SCH (08:39)
--- NOTE | 2022-08-03 06:22 | Electrocardiogram Report ---
Test Reason : Blood Pressure : / mmHG Vent. Rate : 071 BPM Atrial Rate : 071 BPM P-R Int : 128 ms QRS Dur : 114 ms QT Int : 398 ms P-R-T Axes : 049 046 043 degrees QTc Int : 432 ms Normal sinus rhythm Incomplete right bundle branch block Borderline ECG When compared with ECG of 30-JUN-2011 15:27, No significant change was found Confirmed by Dante May ([id number]) on 08/03/2022 6:21:46 AM Referred By: REFERRED SELF Confirmed By:Dante May
--- NOTE | 2022-08-03 07:57 | Discharge Summary ---
Date of Service August 03, 2022 History of Present Illness 57 y/o man brought to the ED on 302 petition by his who reported he was suicidal. He says he just needed to get out of the house because visiting grandkids were loud and rambunctious and he was becoming annoyed and feared he'd yell at them. Everyone seems to agree he'd been drinking and was walking along the road. He insists he only drinks 4 (18-oz) beers and 4 shots of liquor daily and was careful to avoid traffic, while his thinks he drinks more than that and was putting himself at risk from cars along the road. 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 He was made redundant at his previous job but felt incapable of retiring so get the job at the store, which he says he loved. The reasons he was let go from there are somewhat vague but may be related to alcohol. Although pt insists he has hobbies and interests, he focuses quite a lot on how rootless he feels without a job. He acknowledges he's drinking too much. He gets tremulous if he pushes his first drink past mid-afternoon (it's usually at midday) but he's had no other withdrawal symptoms (nor has he gone a day without drinking for years). He denies any previous psychiatric treatment. He endorses poor sleep and appetite but says interest is intact and denies anhedonia. He denies suicidal thoughts ever. He is pleasant and cooperative but presents as somewhat alexithymic and not prone to thinking psychologically. Physical Exam Psychiatric Orientation: alert and oriented x 3 Apperance: appropriately dressed and appropriately groomed Eye Contact: good eye contact Motor Behavior: + tremor Affect: + constricted affect Mood: + depressed mood; no anxious mood and no irritable mood Thought Process: goal directed thought process, linear/logical thought process and clear/coherent thought process Thought Content: reality based without delusions; no preoccupation, no obsessions, not paranoid, no compulsions, no delusions and no ideas of reference Suicidal Thoughts: denies suicidal thoughts Homicidal Thoughts: denies homicidal thoughts Hallucinations: no auditory hallucinations, no visual hallucinations and no tactile hallucinations Cognition: recent memory grossly intact, remote memory grossly intact and attention grossly intact Estimated Intelligence: average estimated intelligence Insight: + fair insight Judgment: + fair judgement Vital Signs (Past 24 Hours) Last Vital Signs Temp 36.7 C 08/03/22 06:36 Pulse 97 H 08/03/22 06:36 Resp 16 08/03/22 06:36 BP 129/83 08/03/22 06:36 Pulse Ox 96 08/01/22 22:05 O2 Del Method Room Air 08/01/22 22:05 Principal Diagnosis Recurrent Major Depression, Moderate Alcohol Withdrawal Psychiatric Data See daily stay summary. In short, safety was maintained and the patient was cooperative with care. Apart from a gabapentin taper and AWSS-based lorazepam sliding scale for medical management of withdrawal, medication changes included addition of escitalopram and they tolerated this well. A family session was held and safety plan was completed prior to discharge. Day of Discharge Assessment Today the patient voices readiness for discharge. They note improvement in mood and deny thoughts to harm self or others. Thoughts remain organized and they are improved from admission. There is no evidence of psychosis. They agree to take mediations as prescribed and keep follow-up appointments. They are stable for discharge to outpatient level of care. Advance Directives Advance Directives Information Provided: Yes Advance Directives: No Mental Health Advance Directive: No Advance Directives on File: No Living Will: No Power of Brick Stacker: No Advance Directives Reason:: Declines as Mental Health Visit. Risk Factors Assessment Male: Yes : Yes Do You Have Access To A Gun?: Yes Health Problems: No Substance Use Disorders: Yes Previous Attempt: No Family History of Suicide: No Hopelessness: No Protective Factors Assessment : Yes Employed: No (Retired. Laid off in Spring 2019) Stable Relationships: Yes Supportive Family: Yes Total Time Total Time Spent: Greater Than 30 Minutes Discharge Data Lab Results 07/30/22 07/30/22 07/30/22 00:01 00:01 00:01 WBC 8.07 RBC 3.85 L Hgb 13.3 L Hct 37.4 L MCV 97.1 MCH 34.5 H MCHC 35.6 RDW Std Deviation 42.5 RDW Coeff of Epi 11.9 Plt Count 322 MPV 8.3 L Immature Gran % (Auto) 0.4 Neut % (Auto) 62.6 Lymph % (Auto) 26.6 Pine % (Auto) 6.8 Eos % (Auto) 2.4 Baso % (Auto) 1.2 Neut # (Auto) 5.05 Lymph # (Auto) 2.15 Pine # (Auto) 0.55 Eos # (Auto) 0.19 Baso # (Auto) 0.10 Immature Gran # (Auto) 0.03 Sodium 130 L Potassium 4.3 Chloride 96 L Carbon Dioxide 18 L Anion Gap 16 H BUN 20 Creatinine 1.06 Est Cr Clr Drug Dosing 66.1 Est GFR ( Amer) 89.2 Est GFR (Non-Af Amer) 77.0 BUN/Creatinine Ratio 18.9 Glucose 103 H Calcium 9.1 Total Bilirubin 1.0 AST 59 H ALT 46 Alkaline Phosphatase 81 Total Protein 8.7 H Albumin 4.9 Globulin 3.8 Albumin/Globulin Ratio 1.3 Vitamin B12 Folate TSH 0.963 Urine Color Urine Appearance Urine pH Ur Specific [place] Urine Protein Urine Glucose (UA) Urine Ketones Urine Blood Urine Nitrite Urine Bilirubin Urine Urobilinogen Ur Leukocyte Esterase Salicylates Urine Opiates Screen Ur Methadone, Qual Acetaminophen Urine Barbiturates Ur Phencyclidine (PCP) U Amphetamin/Meth Scrn MDMA (Ecstasy) Screen U Benzodiazepines Scrn Ur Cocaine Metabolite U Marijuana (THC) Screen Ethyl Alcohol mg/dL SARS-CoV-2, RNA, NAAT 07/30/22 07/30/22 07/30/22 00:01 00:01 02:46 WBC RBC Hgb Hct MCV MCH MCHC RDW Std Deviation RDW Coeff of Epi Plt Count MPV Immature Gran % (Auto) Neut % (Auto) Lymph % (Auto) Pine % (Auto) Eos % (Auto) Baso % (Auto) Neut # (Auto) Lymph # (Auto) Pine # (Auto) Eos # (Auto) Baso # (Auto) Immature Gran # (Auto) Sodium Potassium Chloride Carbon Dioxide Anion Gap BUN Creatinine Est Cr Clr Drug Dosing Est GFR ( Amer) Est GFR (Non-Af Amer) BUN/Creatinine Ratio Glucose Calcium Total Bilirubin AST ALT Alkaline Phosphatase Total Protein Albumin Globulin Albumin/Globulin Ratio Vitamin B12 Folate TSH Urine Color Yellow Urine Appearance Clear Urine pH 5.5 Ur Specific [place] 1.005 Urine Protein Negative Urine Glucose (UA) Negative Urine Ketones Negative Urine Blood Negative Urine Nitrite Negative Urine Bilirubin Negative Urine Urobilinogen Negative Ur Leukocyte Esterase Negative Salicylates < 3.0 L Urine Opiates Screen Ur Methadone, Qual Acetaminophen < 3 L Urine Barbiturates Ur Phencyclidine (PCP) U Amphetamin/Meth Scrn MDMA (Ecstasy) Screen U Benzodiazepines Scrn Ur Cocaine Metabolite U Marijuana (THC) Screen Ethyl Alcohol mg/dL 303.9 H SARS-CoV-2, RNA, NAAT 07/30/22 07/30/22 07/31/22 02:46 02:46 08:23 WBC RBC Hgb Hct MCV MCH MCHC RDW Std Deviation RDW Coeff of Epi Plt Count MPV Immature Gran % (Auto) Neut % (Auto) Lymph % (Auto) Pine % (Auto) Eos % (Auto) Baso % (Auto) Neut # (Auto) Lymph # (Auto) Pine # (Auto) Eos # (Auto) Baso # (Auto) Immature Gran # (Auto) Sodium Potassium Chloride Carbon Dioxide Anion Gap BUN Creatinine Est Cr Clr Drug Dosing Est GFR ( Amer) Est GFR (Non-Af Amer) BUN/Creatinine Ratio Glucose Calcium Total Bilirubin AST ALT Alkaline Phosphatase Total Protein Albumin Globulin Albumin/Globulin Ratio Vitamin B12 223 Folate 16.63 TSH Urine Color Urine Appearance Urine pH Ur Specific [place] Urine Protein Urine Glucose (UA) Urine Ketones Urine Blood Urine Nitrite Urine Bilirubin Urine Urobilinogen Ur Leukocyte Esterase Salicylates Urine Opiates Screen Neg Ur Methadone, Qual Neg Acetaminophen Urine Barbiturates Neg Ur Phencyclidine (PCP) Neg U Amphetamin/Meth Scrn Neg MDMA (Ecstasy) Screen Neg U Benzodiazepines Scrn Neg Ur Cocaine Metabolite Neg U Marijuana (THC) Screen Neg Ethyl Alcohol mg/dL SARS-CoV-2, RNA, NAAT NEGATIVE 08/01/22 06:22 WBC RBC Hgb Hct MCV MCH MCHC RDW Std Deviation RDW Coeff of Epi Plt Count MPV Immature Gran % (Auto) Neut % (Auto) Lymph % (Auto) Pine % (Auto) Eos % (Auto) Baso % (Auto) Neut # (Auto) Lymph # (Auto) Pine # (Auto) Eos # (Auto) Baso # (Auto) Immature Gran # (Auto) Sodium 136 Potassium 4.1 Chloride 101 Carbon Dioxide 24 Anion Gap 11 BUN 24 H Creatinine 1.10 Est Cr Clr Drug Dosing 63.7 Est GFR ( Amer) 85.3 Est GFR (Non-Af Amer) 73.6 BUN/Creatinine Ratio 21.8 H Glucose 103 H Calcium 9.7 Total Bilirubin 2.1 H AST 44 H ALT 38 Alkaline Phosphatase 64 Total Protein 7.7 Albumin 4.4 Globulin 3.3 Albumin/Globulin Ratio 1.3 Vitamin B12 Folate TSH Urine Color Urine Appearance Urine pH Ur Specific [place] Urine Protein Urine Glucose (UA) Urine Ketones Urine Blood Urine Nitrite Urine Bilirubin Urine Urobilinogen Ur Leukocyte Esterase Salicylates Urine Opiates Screen Ur Methadone, Qual Acetaminophen Urine Barbiturates Ur Phencyclidine (PCP) U Amphetamin/Meth Scrn MDMA (Ecstasy) Screen U Benzodiazepines Scrn Ur Cocaine Metabolite U Marijuana (THC) Screen Ethyl Alcohol mg/dL SARS-CoV-2, RNA, NAAT Hospital Course (1) Alcohol use disorder, moderate, dependence: (2) Alcohol withdrawal syndrome without complication: (3) Major depressive disorder, recurrent episode, moderate: Plan 08/03/22: Withdrawal complete. Has been tolerating escitalopram well. 08/02/22: Continue escitalopram 20 mg daily. Continue gabapentin taper and lorazepam sliding scale based on AWSS rating. Anticipate discharge tomorrow. 08/01/22: Begin trial of escitalopram 20 mg daily. Continue gabapentin taper and lorazepam sliding scale based on AWSS rating. 07/31/22: Continue gabapentin taper and lorazepam sliding scale based on AWSS rating. Frequent reassessment to clarify need for antidepressant medication. Pt fairly clearly would benefit from increasing his repertoire of coping mechanisms (currently limited to alcohol and work). Discussed at some length the advisability of pursuing alcohol use disorder treatment following discharge. He is clearly fully voluntary and should be allowed to sign himself in, Mental Health & Subst Abuse Tx Dimension Quarry Supervisor Name of Dimension Quarry Supervisor: [employer] Phone Number for Dimension Quarry Supervisor: [phone] Case Management Appointment Comment: A wrapper caser will follow-up with you directly. Post Discharge Appointments Primary Care Physician Name Of Family Doctor/PCP: [facility] - Eligibility Appointment Primary Care Date of Future Appointment with PCP: 08/06/22 Time of Appointment with PCP: 1:00 PM Provider Appointment Comment: [email or web address], [place], [place] Other #1: Name of Aftercare Appointment: [facility] Eligibility Appointment Time of Aftercare Appointment: If possible, bring a photo ID, proof of address, 1070 tax form from most Aftercare Appointment Comment: recent year, one month of pay stub from household. Contact Information Discharge Discharge Address: [address], [place] [id number] Discharge Plan Discharge Items Patient Disposition: Home - Self-Care Reason For Visit: UNSPECIFIED DEPRESSIVE DISORDER Discharge Diagnosis: Recurrent Major Depression Alcohol Withdrawal Condition on Discharge: Good Activity: Resume your previous activity Non-emergency contact: Primary Care Provider and Psychiatrist Call non-emergency contact if: you have any medication questions and your symptoms worsen Follow-up/Referrals: Adrien Cabello, [Primary Care Provider] - Diet: Regular Addtl Attending Provider Instructions: SPECIAL CARE INSTRUCTIONS: 1. Follow through with your scheduled aftercare appointments. If unable to keep an appointment, please call to reschedule. 2. Take your medication only as prescribed. Medication should not be changed or stopped without the approval of your doctor. In the event of worsening symptoms or concerns about side effects, contact your doctor immediately. 3. Utilize new healthy coping skills, anger management skills, and stress management skills learned during your hospitalization. Journal feelings and process them with a support person. Identify stressors or situations that may result in relapse, deterioration or inappropriate behaviors and develop a plan to deal with those issues. 4. If your coping skills are ineffective and you are in crisis, contact your outpatient providers for direction. If unable to reach your providers, please call the [facility] CRISIS LINE AT , go to the [facility] walk-in center at [address], [address], [place], or go to the closest Emergency Room. 5. Avoid alcohol and un-prescribed drugs. 6. You have been provided with the Mental Health Advance Directives Pamphlet for your review. 7. Your condition is stable for discharge to outpatient level of care, but recovery is an ongoing process. Ifthoughts to harm yourself or others return, follow the safety plan developed during your stay. Planning for a safe return home includes securing weapons. Our treatment team recommends weaponsbe removed from the home until your outpatient provider reassesses your progress. In rare cases where the items themselvescannot be removed, guns and ammunitionshould be secured separatelyand keys stored by a reliable personoutside of the home. If you were admitted on an involuntary commitment, the police or other legal authorities may be involved in this process. AFTERCARE APPOINTMENTS: * Please call your insurance company prior to your scheduled appointment to confirm your aftercare providers are covered. Take your insurance information to your appointments. WHO TO CALL AND WHEN: Medical Emergencies: For questions or emergencies related to your hospital stay, please contact the Inpatient Behavioral Health Unit at [phone]. A metallurgical laboratory assistant is on-call 10/01 for the Behavioral Health Unit for emergencies At any time you feel your situation is an emergency, you may also call 911 immediately. Pending Studies at Discharge: No Stand-Alone Forms: My [facility] [employer], Smoking Cessation Medications and DC Order Prescriptions: New folic acid 1 mg Tablet 1 mg PO QAM 30 Days Qty: 30 0RF escitalopram oxalate 10 mg Tablet 10 mg PO QAM 30 Days Qty: 30 0RF Continued amlodipine 10 mg tablet 10 mg PO DAILY Qty: 90 3RF lisinopril 40 mg tablet 40 mg PO DAILY Qty: 90 3RF Discharge Orders: Discharge Order (Routine); Ordered 08/03/22 Ordered By: Adam Sharma Admission Data Admit Date/Time: 07/31/22 05:19 Attending Provider: Adam Sharma Admit Provider: Adam Sharma Primary Care Provider: Adrien Cabello Other Interventions: Discharge Summary Assessment (RN) Last Done: 07/31/22 11:07 Coding Level of Care Code 39859 D/C day mgmt > 30 min Diagnoses Alcohol use disorder, moderate, dependence F10.20 Alcohol withdrawal syndrome without complication F10.930 Major depressive disorder, recurrent episode, moderate F33.1 Time Spent (min) 33
[2022-08-03] MEDS: amLODIPine BESYLATE 5 MG TAB PO SCH (08:08)
[2022-08-03] MEDS: FOLIC ACID 1 MG TAB PO SCH (08:09)
[2022-08-03] MEDS: lisinopril 40 MG TAB PO SCH (08:09)
[2022-08-03] MEDS: ESCITALOPRAM OXALATE 10 MG TAB PO SCH (08:09)
[2022-08-03] MEDS: THIAMINE HCL 100 MG TAB PO SCH (08:09)
[2022-08-03] MEDS ORDERED: GABAPENTIN 600 MG TAB PO SCH (17:15)
== END 2022-08-03 11:48 | disposition home or self-care (01) | DRG 885 ==
LOC: ED 23:14 → 3S 07-31 05:19